=== PATIENT | male | born 1980 | race Asian ===

== ENCOUNTER 2023-08-07 11:07 | Emergency (ER) | payer MEDICAID ==
[~2023-08-07] VITALS: Ht 175.3 cm; Wt 90.7 kg
[2023-08-07 11:14] VITALS: BP_SYST 130; PULSE 110; RESP 25; TEMP 98.9; O2SAT 98
[2023-08-07] MEDS: HALOPERIDOL LACTATE 5 MG/ML VIAL IM ONE (11:30)
[2023-08-07] MEDS: DIPHENHYDRAMINE INJ 50 MG/ML VIAL IM ONE (11:30)
[2023-08-07] MEDS: LORazepam 2 MG/ML VIAL IM ONE (11:30)
[2023-08-07 11:49] LABS: BASOPHILS % (AUTO) 0.4 % (0.0-2.0); EOSINOPHILS % (AUTO) 0.2 % (0.0-4.0); HEMATOCRIT 40.9 % (36-54); HEMOGLOBIN 14.3 g/dL (14.0-18.0); LYMPHOCYTES % (AUTO) 20.9 % (20.5-51.5); MEAN CORPUSCULAR HEMOGLOBIN 31 pg (27-31); MEAN CORPUSCULAR HGB CONC 35 % (32-36); MEAN CORPUSCULAR VOLUME 89 fL (79.0-98.0); MONOCYTES # (AUTO) 0.5 K/uL (0.0-1.0); MONOCYTES % (AUTO) 5.2 % (1.7-9.3); NEUTROPHILS # (AUTO) 7.1 K/uL (1.8-7.7); NEUTROPHILS % (AUTO) 73.3 % (40.0-70.0); PLATELET COUNT (AUTO) 271 K/uL (130-430); RED CELL DISTRIBUTION WIDTH 13.1 % (9.0-15.0); WHITE BLOOD COUNT (AUTO) 9.6 K/uL (4.8-10.8)
[2023-08-07 12:11] LABS: ANION GAP 16 (5-15); CALCIUM 9.7 mg/dL (8.4-11.0); CARBON DIOXIDE 19 mmol/L (23-29); CHLORIDE 108 mmol/L (98-107); GFR AFRICAN AMERICAN 94 mL/min (>90); GLUCOSE 107 mg/dL (74-106); POTASSIUM 3.2 mmol/L (3.5-5.1); SODIUM SERUM 143 mmol/L (136-145); UREA NITROGEN, BLOOD 10 mg/dL (8-21)
[2023-08-07 12:12] LABS: SALICYLATE < 1 mg/dL (3-30)
[2023-08-07 12:13] LABS: ACETAMINOPHEN < 1 ug/mL (1-30); ALCOHOL, BLOOD < 3 mg/dL (<10); GFR NON AFRICAN-AMERICAN 77 mL/min (>90); HEMOGLOBIN A1C 5.81 % (<5.7)
[2023-08-07] MEDS: NORMAL SALINE 5 ML DISP.SYRIN IVF SCH (14:00)
[2023-08-07] MEDS: POTASSIUM CHLORIDE 20 MEQ/PKT PACKET PO ONE (14:25)
[2023-08-07 16:11] LABS: BILIRUBIN,URINE NEGATIVE (NEGATIVE); BLOOD, URINE NEGATIVE (NEGATIVE); CLARITY/URINE CLEAR (CLEAR); COLOR,URINE YELLOW (YELLOW); GLUCOSE,URINE NEGATIVE (NEGATIVE); KETONES,URINE NEGATIVE (NEGATIVE); LEUKOCYTE ESTERASE ,URINE NEGATIVE (NEGATIVE); NITRITE, URINE NEGATIVE (NEGATIVE); PROTEIN URINE NEGATIVE (NEGATIVE); UROBILINOGEN,URINE 0.2 (0.2-1.0)
[2023-08-07 17:01] LABS: BARBITURATE, URINE NEGATIVE (NEG <=200); BENZODIAZEPINE, URINE POSITIVE (NEG <=150); CANNABINOID, URINE NEGATIVE (NEG <=50); COCAINE, URINE NEGATIVE (NEG <=150); METHAMPHETAMINES SCREEN,URINE NEGATIVE (NEG <=500); OPIATE, URINE NEGATIVE (NEG <=100); PHENCYCLIDINE SCREEN,URINE NEGATIVE (NEG <=25); URINE AMPHETAMINE NEGATIVE (NEG <=500); URINE METHADONE NEGATIVE (NEG <=200); URINE OXYCODONE SCREEN NEGATIVE (NEG <=100)
[2023-08-07 17:02] LABS: UR TRICYCLIC ANTIDEPRESSANTS NEGATIVE (NEG <=300)
[2023-08-07 21:30] VITALS: BP_SYST 121; PULSE 86; RESP 20; TEMP 98.6; O2SAT 95
== END 2023-08-07 21:30 ==
LOC: SED 11:07
DX: F23 Brief psychotic disorder (principal); E87.6 Hypokalemia; R45.851 Suicidal ideations; Z79.899 Other long term (current) drug therapy; Z20.822 Contact with and (suspected) exposure to COVID-19
CPT/HCPCS: 99285; 87426; 80307; 80048; 83037; 80178; 85025; 36415; 96372; 81003; 81001; J1200; J1630; J2060; G0480; G0481; G0482